=== PATIENT | male | born 1945 ===

== ENCOUNTER 2019-09-14 10:47 | Emergency (ER) | payer MEDICARE, OTHER ==
--- NOTE | 2019-09-14 11:43 | UC ---
Skin Complaint HPI - HPI Summary HPI Summary: The patient is a 74-year-old male the room removed a tick from his left wrist yesterday. He estimates it was on for no longer than 3 or 4 hours. His sputum come in because he has some redness at the site of the tick bite. - History of Current Complaint Chief Complaint: UCSkin Time Seen by Provider: 09/14/19 11:37 Stated Complaint: TICK Hx Obtained From: Patient Onset Severity: Mild Current Severity: None Pain Intensity: 0 Pain Scale Used: 0-10 Numeric Location: Discrete - left wrist Character: Redness Aggravating Factor(s): Nothing Alleviating Factor(s): Nothing Related History: Insect Bite/Sting - Allergy/Home Medications Allergies/Adverse Reactions: Allergies Allergy/AdvReac Type Severity Reaction Status Date / Time aspirin Allergy Difficulty Verified 09/14/19 11:09 Breathing codeine Allergy Difficulty Verified 09/14/19 11:09 Breathing Penicillins Allergy Difficulty Verified 09/14/19 11:09 Breathing Home Medications: Home Medications Albuterol HFA INHALER* [Ventolin HFA Inhaler*] 2 puff INH Q4HR PRN 09/14/19 [ History Confirmed 09/14/19] Fluticasone Propion/Salmeterol [Wixela 500-50 Inhub] 1 puff INH BID 09/14/19 [ History Confirmed 09/14/19] lamoTRIgine [Lamictal] 1 tab PO BID 09/14/19 [History Confirmed 09/14/19] PMH/Surg Hx/FS Hx/Imm Hx Previously Healthy: Yes Respiratory History: COPD, Asthma - Surgical History Surgical History: Yes Surgery Procedure, Year, and Place: arm fracture,. foot repair - Family History Known Family History: Positive: Hypertension, Respiratory Disease - Social History Alcohol Use: Occasionally Substance Use Type: None Smoking Status (MU): Never Smoked Tobacco Review of Systems All Other Systems Reviewed And Are Negative: Yes Constitutional: Positive: Negative Skin: Positive: Negative Eyes: Positive: Negative ENT: Positive: Negative Respiratory: Positive: Negative Cardiovascular: Positive: Negative Gastrointestinal: Positive: Negative Genitourinary: Positive: Negative Motor: Positive: Negative Neurovascular: Positive: Negative Neurological: Positive: Negative Psychological: Positive: Negative Physical Exam Triage Information Reviewed: Yes Appearance: Well-Appearing, No Pain Distress, Well-Nourished Vital Signs: Initial Vital Signs Temp 97.5 F 09/14/19 10:58 Pulse 72 09/14/19 10:58 Resp 18 09/14/19 10:58 BP 125/67 09/14/19 10:58 Pulse Ox 95 09/14/19 10:58 Vital Signs Reviewed: Yes Eyes: Positive: Conjunctiva Clear ENT: Negative: Hearing grossly normal - slight [place], Nasal congestion, Nasal drainage, Trismus, Muffled voice, Hoarse voice Dental: Negative: Abscess @ Neck: Positive: Supple Respiratory: Positive: Lungs clear, Normal breath sounds, No respiratory distress, No accessory muscle use Cardiovascular: Positive: RRR, No Murmur Musculoskeletal: Positive: ROM Intact, No Edema Neurological: Positive: Alert Psychological Exam: Normal Skin Exam: Other - tick bite site:minute scab surrounded by 1-2 mm or erthyema Course/Dx - Diagnoses Provider Diagnosis: Tick bite Discharge ED - Sign-Out/Discharge Documenting (check all that apply): Patient Departure All imaging exams completed and their final reports reviewed: No Studies - Discharge Plan Condition: Stable Disposition: HOME Patient Education Materials: Tick Bite (ED) Referrals: [facility] [place] [facility] [place]] - If Needed No Primary Care Phys,NOPCP [Primary Care Provider] - Additional Instructions: call for any questions return for any problems - Billing Disposition and Condition Condition: STABLE Disposition: Home
== END 2019-09-14 11:47 | disposition home or self-care (01) ==
LOC: UCEAST 10:47
DX: S60.862A Insect bite (nonvenomous) of left wrist, initial encounter (principal); J44.9 Chronic obstructive pulmonary disease, unspecified; Z79.899 Other long term (current) drug therapy; Z88.6 Allergy status to analgesic agent; Z88.5 Allergy status to narcotic agent; Z88.0 Allergy status to penicillin; W57.XXXA Bitten or stung by nonvenomous insect and other nonvenomous arthropods, initial encounter; Y92.9 Unspecified place or not applicable
CPT/HCPCS: 99201; G0463